=== PATIENT | male | born 1995 | race Caucasian/White ===

== ENCOUNTER 2021-09-09 21:51 | Emergency (ER) | payer OTHER ==
[~2021-09-09] VITALS: Ht 190 cm; Wt 87.1 kg
[2021-09-09 21:57] VITALS: BP 123/65
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
--- NOTE | 2021-09-09 22:43 | Diagnostic Imaging Report ---
INDICATION: Pain after fall. FINDINGS: There is an ulnar styloid fracture. There is no other fracture or dislocation. Soft tissues are unremarkable. IMPRESSION: Slightly displaced ulnar styloid fracture. Dictated by: Dictated on workstation # [id number]
[2021-09-09] MEDS ORDERED: IBUP-1780 PO (22:51)
== END 2021-09-09 23:36 | disposition home or self-care (01) ==
LOC: ER FS 21:55
DX: S52.611A Displaced fracture of right ulna styloid process, initial encounter for closed fracture (principal); V80.018A Animal-rider injured by fall from or being thrown from other animal in noncollision accident, initial encounter
CPT/HCPCS: 29105; 73110; 99284; A4565